=== PATIENT | female | born 1990 | race Caucasian/White ===

== ENCOUNTER 2016-11-05 08:00 | Emergency (ER) | payer OTHER ==
--- NOTE | ~2016-11-05 | CT2 ---
[facility] A Service of [facility] RADIOLOGY TEXT RESULTS PATIENT: JESS LUTHER LOCATION: SED : 88 UNIT #: [id number] AGE: [address]: Annabel Jacobson MD SEX: F ORDER DR: [id number] [address] [address] [id number] E MR#: [id number] Acc #: [id number] NAME: JESS LUTHER : 1990 SEX: F STUDY DATE/TIME: 11/05/2016 9:22 UNIT: SED ROOM: STUDY DESCRIPTION: CT Abd and Pelv W Cont Attending Physician: Annabel Jacobson M.D. Referring Physician: Annabel Jacobson M.D. Ordering Physician: Annabel Jacobson M.D. Primary Care Physician: Yamilka Jones M.D. MEDICAL IMAGING REPORT This report is preliminary unless electronic signature is present. EXAM CT abdomen and pelvis. HISTORY Pain. Epigastric pain and nausea for 2 days. Prior breast augmentation. TECHNIQUE CT abdomen and pelvis performed with intravenous administration of 100 mL Isovue-370. This CT exam was performed with one or more of the following radiation dose reduction techniques: automatic exposure control, adjustment of mA and/or kV according to patient size, and iterative reconstruction. COMPARISON 10/08/2014 FINDINGS Prior bilateral augmentation mammoplasty. Inferior heart and pericardium unremarkable. The lung bases are clear. The liver shows patchy areas of diminished density, most conspicuous in segment 4 and 6 of the liver. Similar to prior examination, but more evident on today's contrast-enhanced study. Given the patient's young age, and in the absence of risk factors, I favor a benign etiology such as fatty infiltration. Findings best further evaluated with MRI. The gallbladder, spleen, pancreas, adrenal glands, kidneys are unremarkable. CT PELVIS: No inguinal adenopathy. Urinary bladder is normal. There is an intrauterine device in place. This is a T-shaped device. As on the prior examination, the short arms of the T bear an intimate relationship to the tips of the short T limbs, could in fact extend very slightly through the uterine serosa. On the current examination, the tips of the short limbs of the T bear a very close relationship to loops of small STS. [facility] A Service of [facility] RADIOLOGY TEXT RESULTS PATIENT: JESS LUTHER LOCATION: SED : 89 UNIT #: [id number] AGE: [address]: Annabel Jacobson MD SEX: F ORDER DR: bowel immediately adjacent to the uterus. I see no free air, fluid collection, or inflammatory change to increase suspicion for a small bowel perforation. Gynecologic consultation is strongly recommended, given what appears to be at least intramural extension of the intrauterine device into myometrium of uterine fundus and possibly uterine perforation. There is a trace amount of free fluid in the pelvis, not a drainable fluid collection and most likely physiologic in nature. There is a rim-enhancing right ovarian cyst measuring 1.7 cm in diameter, most likely the dominant follicle for this menstrual cycle. The free fluid is seen adjacent to this cyst and I favor the fluid is from cyst rupture. No pelvic or retroperitoneal adenopathy. The distal esophagus is unremarkable. There is mild to moderate distension of stomach with fluid, food debris, and air. This may simply reflect the patient's ingestion history. No gastric wall thickening or perigastric inflammatory change. The small bowel shows some mildly dilated loops in the left hemiabdomen containing fluid, air, and food debris. These loops measure up to 3.5 cm in diameter. This is a new appearance compared to prior examination. There is air and fluid in the small bowel distal to these loops. The abnormal loops are likely in the mid jejunum. The appearance is nonspecific and may represent a localized small bowel ileus. I cannot exclude partial small bowel obstruction. Findings could best be further evaluated with repeat CT examination using enteric contrast or standard small-bowel follow-through. The appendix is unremarkable. The colon shows physiologic stool burden with no acute-appearing abnormality. Vascular structures show no acute abnormality. The bony structures show no acute abnormality. IMPRESSION 1. Mildly dilated loops of mid jejunum in the left hemiabdomen. These loops contain air, fluid, and food debris. They measure up to 3.5 cm in diameter. This is a new appearance compared to the prior examination. The more distal loops of jejunum and ileum do contain air and fluid, but the abnormally dilated loops have an appearance raising concern for partial small bowel obstruction. The possibility of localized small bowel ileus could be considered but I see no regional inflammatory process in this area. This appearance is best further evaluated with repeat CT examination using enteric contrast or standard small-bowel follow-through. 2. Mild to moderate distension of stomach with air, fluid, and food debris, likely physiologic in nature. Correlate with time course of ingestion history. No gastric inflammatory change suggested. 3. Patient has a T-shaped intrauterine device in place. As on prior study in 2015, the short arms of the T have an appearance suggesting migration into fundal myometrium and the tips of both short limbs are intimately associated with the fundal serosa. I cannot exclude trans-serosal perforation. In addition the tips of the short limbs are immediately adjacent to loops of otherwise unremarkable small bowel at level of the uterine fundus. There is no compelling evidence of small bowel perforation. There is no localized STS. [facility] A Service of [facility] RADIOLOGY TEXT RESULTS PATIENT: JESS LUTHER LOCATION: SED : 89 UNIT #: [id number] AGE: [address]: Annabel Jacobson MD SEX: F ORDER DR: inflammatory change, free air, or fluid collection at this location. Given the abnormal appearance of the intrauterine device, I would recommend gynecologic consultation. If further assessment of the intrauterine device is felt clinically warranted ultrasound could be pursued. This finding was discussed on the patient's prior examination as well. 4. There is a small amount of free fluid in the deep pelvis which is favored to be physiologic in nature and related to rupturing right ovarian cyst. 1.7 cm rim-enhancing cyst in the right ovary adjacent to the free fluid likely represents dominant follicle for this menstrual cycle. 5. Gallbladder, pancreas, appendix normal. 6. Ill-defined patchy areas of hypodensity in segment 4 and 6 of the liver. More conspicuous than on prior noncontrast enhanced examination but felt to be present on study from 2015. Patchy fatty infiltration favored as etiology, best fully characterized with hepatic MRI or multiphase contrast-enhanced CT. Dictated by... Jaspal Christensen M.D. THIS IS AN ELECTRONICALLY VERIFIED REPORT Jaspal Christensen M.D. at 11/05/2016 4:49 PM HERNÁN/mauro TD: 11/05/2016 12:03 JOB #: [id number] MEDICAL IMAGING REPORT Page 1 of 1
[~2016-11-05 08:00] MED LIST: BENTYL20 M1 PO; DIFLUCAN PO; FLAGYL PO; IBUPROFEN800 MG PO; LOMOTIL WHITE2.5 MG PO; NO MEDICATIONS; PHENERGAN25 M1 PO; VIBRAMYCIN100 M1 DOB; VOLTAREN50 MG PO; VOLTAREN75 MG PO; ZOFRAN PO
[2016-11-05 08:03] LABS: BASOPHIL% 0.5 % (0-2.5); EOSINOPHIL# 0.2 X10e3 (0-0.7); EOSINOPHIL% 2.5 % (0.0-7.0); HEMATOCRIT 41.8 % (35.0-45.0); HEMOGLOBIN 14.4 gm/dL (12.0-16.0); LYMPHOCYTE# 1.6 X10e3 (1.0-3.5); LYMPHOCYTE% 22.8 % (17.0-45.0); MEAN CELL VOLUME 89.6 FL (83-96); MEAN CORPUSCULAR HEMOGLOBIN 30.9 PG (28-34); MEAN CORPUSCULAR HGB CONC 34.5 g/dL (30-36); MEAN PLATELET VOLUME 9.4 FL (6.5-11.5); MONOCYTE# 0.6 X10e3 (0-1.0); MONOCYTE% 7.9 % (3.0-12.0); NEUTROPHIL# 4.8 X10e3 (1.5-7.1); NEUTROPHIL% 66.3 % (40-75); PLATELET COUNT 206 X10e3 (140-420); RED BLOOD COUNT 4.66 X10e (3.90-5.30); RED CELL DISTRIBUTION WIDTH 12.5 % (11.0-15.5); WHITE BLOOD COUNT 7.2 X10e3 (4.0-10.5)
[2016-11-05 08:08] LABS: DIFF IND NO
[2016-11-05 08:24] LABS: BILIRUBIN, DIRECT 0.2 mg/dL (0.0-0.2); BILIRUBIN,INDIRECT 1.1 mg/dL (0.0-0.9); BILIRUBIN,TOTAL 1.3 mg/dL (0.2-2.0); BUN/CREATININE RATIO 16.25; CALCIUM SERUM 8.9 mg/dL (8.4-10.2); CREATININE SERUM 0.8 mg/dL (0.6-1.4); GLOM FILT RATE Estimated 101.1 mL/min (>60); POTASSIUM 3.5 mmol/L (3.5-5.1); PROTEIN TOTAL SERUM 7.4 g/dL (6.0-8.3)
== END 2016-11-05 12:44 ==
LOC: SED 08:00
PROVIDERS: Emergency Medicine
DX: K56.60 Unspecified intestinal obstruction (principal); Z98.890 Other specified postprocedural states
CPT/HCPCS: 74177; 80048; 80076; 83690; 84703; 85025; 96361; 96374; 96375; 96376; 99285; J1170; J2405; Q9967

== ENCOUNTER 2017-04-19 08:50 | Emergency (ER) | payer OTHER ==
[2017-04-19 09:27] LABS: URINE SOURCE CLEAN CATCH
[2017-04-19 09:34] LABS: URINE APPEARANCE CLEAR; URINE BILIRUBIN NEG (NEG); URINE BLOOD 1+ (NEG); URINE COLOR YELLOW; URINE GLUCOSE NEG (NORM); URINE KETONE NEG (NEG); URINE LEUKOCYTE ESTERASE 1+ (NEG); URINE NITRATE NEG (NEG); URINE PROTEIN NEG (NEG)
[2017-04-19 09:39] LABS: MICRO INDICATED? YES
[2017-04-19 09:47] LABS: CULTURE INDICATED? NO; URINE BACTERIA NEG (NEG); URINE WBC 0-2 /[HPF] (0-5)
[2017-04-21 04:49] LABS: CHLAMYDIA TRACH Not Detected (Not Detected); N GONOR Not Detected (Not Detected)
== END 2017-04-19 10:31 | disposition home or self-care (01) ==
LOC: SED 08:50
PROVIDERS: Student in an Organized Health Care Education/Training Program
DX: R10.2 Pelvic and perineal pain (principal); Z88.8 Allergy status to other drugs, medicaments and biological substances
CPT/HCPCS: 81003; 84703; 87491; 87591; 87808; 87905; 99284